=== PATIENT | female | born 1950 | race Caucasian/White ===

== ENCOUNTER 2017-02-12 16:45 | Emergency (ER) | payer MEDICARE, OTHER ==
[~2017-02-12] VITALS: Ht 156.2 cm; Wt 60.0 kg
--- NOTE | 2017-02-12 18:29 | REP ---
Right humerus: Two views. History: Trauma. Findings: AP and lateral views of the right humerus demonstrate normal bones, joints, and soft tissues. No fracture or subluxation is seen. Impression: Negative views of the right humerus. Signed by James Bullard MD 02/12/2017 07:49 P
[2017-02-12] MEDS ORDERED: PERCOCET 5MG/325MG TAB PO ONE ×2 (18:30→19:15)
--- NOTE | 2017-02-12 18:30 | REP ---
Right forearm series: Three views. History: Trauma. Findings: Three views of the right forearm demonstrate no evidence of fracture or subluxation. Bones, joints and soft tissues are unremarkable. Impression: No fracture seen. Signed by James Bullard MD 02/12/2017 07:49 P
--- NOTE | 2017-02-12 18:30 | REP ---
Left foot series: Four views. History: Trauma. Findings: Four views of the left foot show diffuse osteopenia. No fracture or subluxation is seen. Impression: Diffuse osteopenia. No fracture noted. Signed by James Bullard MD 02/12/2017 07:49 P
--- NOTE | 2017-02-12 18:31 | REP ---
Left ankle series: Four views. History: Trauma. Findings: Four views of the left ankle demonstrate an intact ankle mortise. Bones, joints, and soft tissues are unremarkable. Impression: Negative views of the left ankle. Signed by James Bullard MD 02/12/2017 07:49 P
[2017-02-12] MEDS ORDERED: PERC5TAB12 PO (19:08)
[2017-02-12 19:15] VITALS: BP 196/90
== END 2017-02-12 19:30 | disposition home or self-care (01) ==
LOC: M ED 16:45
DX: S93.402A Sprain of unspecified ligament of left ankle, initial encounter (principal); S63.601A Unspecified sprain of right thumb, initial encounter; S40.022A Contusion of left upper arm, initial encounter; W01.0XXA Fall on same level from slipping, tripping and stumbling without subsequent striking against object, initial encounter; Y92.512 Supermarket, store or market as the place of occurrence of the external cause; Y93.89 Activity, other specified; Y99.8 Other external cause status; J45.909 Unspecified asthma, uncomplicated; Z88.5 Allergy status to narcotic agent

== ENCOUNTER → 2017-05-04 | Outpatient (CLI) | payer MEDICARE, OTHER | LOC: M WHC 09:09 | DX: Z12.31 Encounter for screening mammogram for malignant neoplasm of breast (principal); Z78.0 Asymptomatic menopausal state; Z79.890 Hormone replacement therapy; N95.9 Unspecified menopausal and perimenopausal disorder | CPT/HCPCS: G0202 ==

== ENCOUNTER → 2018-06-28 | Outpatient (CLI) | payer MEDICARE, OTHER ==
[~2018-06-28] MED LIST: PERC5TAB12 PO
--- NOTE | 2018-06-28 11:30 | REPMRS ---
Patient History The patient states she had a clinical breast exam in 06/2018. Patient is postmenopausal. Family history of pancreatic cancer at age 38 in sister. Taking estrogen for 4 years. Took unspecified hormones for 2 years. Digital Woman Screen Mammo: June 28, 2018 - Exam #: [id number] Bilateral CC and MLO view(s) were taken. Technologist: Ashly Castillo, Technologist Prior study comparison: May 04, 2017, digital woman screen mammo performed at [facility]. February 14, 2016, digital woman screen mammo performed at [facility]. FINDINGS: There are scattered fibroglandular densities. There has been no change in the appearance of the mammogram from the prior studies. There is a mild amount of residual fibroglandular tissue which is fairly symmetric. There is no interval development of dominant mass, architectural distortion, or clustered microcalcification suggestive of malignancy. There are bilateral benign arterial calcifications noted. 3-D tomosynthesis shows no additional findings. The patient's Tyrer-Cuzick lifetime risk assessment score is 2.5 %. No significant changes when compared with prior studies. Assessment: BI-RADS/ACR category 2 mammogram. Benign Findings. Recommendation Routine screening mammogram in 1 year (for women over age 40). This mammogram was interpreted with the aid of an FDA-approved computer-aided dectection system. A. Negative x-ray reports should not delay biopsy if a dominant or clinically suspicious mass is present. B. Four to eight percent of cancers are not identified by mammography. C. Adenosis and dense breast may obscure an underlying neoplasm. Electronically Signed By: Tremanie Villareal MD 06/28/18 [id number]
== END ==
LOC: M WHC 09:09
PROVIDERS: ATTEND Nurse Practitioner Family
DX: Z01.419 Encounter for gynecological examination (general) (routine) without abnormal findings (principal); Z12.31 Encounter for screening mammogram for malignant neoplasm of breast; Z78.0 Asymptomatic menopausal state; R92.1 Mammographic calcification found on diagnostic imaging of breast; Z12.12 Encounter for screening for malignant neoplasm of rectum; Z92.23 Personal history of estrogen therapy; Z92.29 Personal history of other drug therapy; Z80.0 Family history of malignant neoplasm of digestive organs
CPT/HCPCS: 77063; 77067; 82270; G0101

== ENCOUNTER → 2019-04-24 | Outpatient (CLI) | payer MEDICARE, OTHER ==
--- NOTE | 2019-04-24 11:07 | REP ---
MRI right shoulder without contrast: History: Impingement syndrome. Rule out rotator cuff tear. Comparison radiographs of the right shoulder are from February 12, 2017. Technique: Axial, coronal and sagittal imaging planes are utilized. T1 and T2-weighted scans were obtained with and without fat saturation. MRI findings: The glenohumeral and acromioclavicular joints are normally aligned. There is moderate AC joint hypertrophy and some marrow edema is seen on either side of the acromioclavicular joint consistent with osteoarthritis. Subcortical cyst formation is seen in the distal clavicle. Cortical and medullary bone signal intensity are otherwise normal. There is a fairly large subacromial subdeltoid bursal effusion. There is mild inferolateral acromion process spurring. There is irregularity and some attenuation of the distal supraspinatus tendon consistent with partial tearing. Intra substance increased signal intensity is seen in a linear fashion in the distal supraspinatus tendon on oblique coronal T2-weighted scans. Subscapularis and infraspinatus tendons appear intact. Biceps tendon is unremarkable. Superior labrum appears intact. There is mild chondromalacia in the glenohumeral articulation. No anterior or posterior labral tear is seen. Impression: Partial thickness bursal surface tear supraspinatus tendon with slight attenuation associated with inferolateral acromion process spurring and bursal effusion. AC joint osteoarthritis. Minimal glenohumeral chondromalacia. Electronically Signed by James Bullard MD 04/24/2019 02:23 P
== END ==
LOC: M RAD 09:34
PROVIDERS: ATTEND Orthopaedic Surgery Hand Surgery
DX: M75.41 Impingement syndrome of right shoulder (principal); M19.011 Primary osteoarthritis, right shoulder

== ENCOUNTER → 2019-06-10 | Outpatient (CLI) | payer MEDICARE, OTHER ==
[~2019-06-10] MED LIST changes: +B-12100010 PO; +CALC500C16 PO; +VITA100054 PO; +VITA100T59 PO
--- NOTE | 2019-06-10 18:35 | ECGEPIP ---
[facility] Test Date: 2019-06-10 Pat Name: SHARI TEIXEIRA Department: Room: - Gender: Female [employer] Machine Operator: : [id number] Requested By: PATI Gomez Order Number: [id number] Reading MD: Jeffrey Hou Measurements Intervals [place] Rate: 57 P: 65 MT: 167 QRS: 77 QRSD: 105 T: 52 QT: 457 QTc: 447 Interpretive Statements SINUS BRADYCARDIA NO PRIOR Electronically Signed on 06-10-2019 18:34:46 EST by Jeffery Hou
== END ==
LOC: M EKG 09:42
PROVIDERS: ATTEND Anesthesiology
DX: Z01.818 Encounter for other preprocedural examination (principal); J45.909 Unspecified asthma, uncomplicated; R00.1 Bradycardia, unspecified

== ENCOUNTER 2019-06-19 05:47 | Day surgery (SDC) | payer MEDICARE, OTHER ==
[~2019-06-19] VITALS: Ht 156.2 cm; Wt 60.3 kg
[2019-06-19] MEDS ORDERED: LIDOCAINE 1% MDV 20ML VIAL ONE (05:48)
[2019-06-19] MEDS ORDERED: dexameTHASONE 10 MG/1 ML VIAL PRES.FREE (J1100) ONE (05:48)
[2019-06-19] MEDS ORDERED: ROPIvacaine 0.5% 30 ML INJECTION (J2795 PER 1MG) ONE (05:48)
[2019-06-19] MEDS ORDERED: LR 1,000 ML IV ONE (06:00)
[2019-06-19] MEDS ORDERED: ceFAZolin SOD 2 GM in IV 1 EA IV ONE (06:00)
[2019-06-19] MEDS ORDERED: VITAD1000T PO (06:32)
[2019-06-19] MEDS ORDERED: EPINEPHrine 1MG/ML INJ 30ML MD-VIAL As Ordered ONE (06:57)
[2019-06-19] MEDS ORDERED: MIDAZOLAM INJ 2 MG/2 ML VIAL (J2250) As Ordered ONE ×2 (07:01→08:10)
[2019-06-19] MEDS ORDERED: fentaNYL 100 MCG/2 ML INJECTION (J3010) As Ordered ONE (07:01)
[2019-06-19] MEDS ORDERED: SCOPOLAMINE 1MG TRANSDERMAL PATCH As Ordered ONE (07:03)
[2019-06-19] MEDS ORDERED: SCOPOLAMINE 1MG TRANSDERMAL PATCH TOP ONE (07:15)
[2019-06-19] MEDS ORDERED: fentaNYL 100 MCG/2 ML INJECTION (J3010) IV ONE (07:30)
[2019-06-19] MEDS ORDERED: MIDAZOLAM INJ 2 MG/2 ML VIAL (J2250) IV ONE (07:30)
[2019-06-19] MEDS ORDERED: dexameTHASONE 4 MG/ML 1ML VIAL (J1100) As Ordered ONE (08:10)
[2019-06-19] MEDS ORDERED: ONDANSETRON 4MG/2ML VIAL (J2405) As Ordered ONE (08:10)
[2019-06-19] MEDS ORDERED: LIDOCAINE 2% INJ 100 MG/5 ML SDV (FOR ANES.) As Ordered ONE (08:10)
[2019-06-19] MEDS ORDERED: ROCURONIUM BROMIDE 50 MG/5 ML VIAL As Ordered ONE (08:10)
[2019-06-19] MEDS ORDERED: SUGAMMADEX SODIUM 500 MG/5 ML VIAL (BRIDION) As Ordered ONE (08:10)
[2019-06-19] MEDS ORDERED: fentaNYL 250 MCG/5 ML INJECTION (J3010) As Ordered ONE (08:10)
[2019-06-19] MEDS ORDERED: propofoL 200 MG/20 ML VIAL As Ordered ONE (08:10)
[2019-06-19] MEDS ORDERED: METOCLOPRAMIDE INJ 10MG/2ML VIAL (J2765) As Ordered ONE (08:10)
[2019-06-19] MEDS ORDERED: DESFLURANE 240 ML INHALANT As Ordered ONE (08:12)
[2019-06-19] MEDS ORDERED: ACETAMINOPHEN 1000MG 100ML IV BTL (OFIRMEV) (J0131 PER 10MG) As Ordered ONE (08:13)
[2019-06-19] MEDS ORDERED: PHENYLephrine HCL 500 MCG/5 ML (100MCG/ML) SYRINGE (J2370) As Ordered ONE (08:20)
[2019-06-19] MEDS ORDERED: ePHEDrine SULFATE 25 MG/5 ML(5MG/ML) SYRINGE As Ordered ONE (08:29)
[2019-06-19] MEDS ORDERED: fentaNYL 100 MCG/2 ML INJECTION (J3010) IV PRN ×2 (10:15→12:30)
[2019-06-19] MEDS ORDERED: HYDROMORPHONE HCL 0.5 MG/ 0.5 ML SYRINGE (J1170 PER 1) IV PRN ×2 (10:15→12:30)
[2019-06-19] MEDS ORDERED: ONDANSETRON 4MG/2ML VIAL (J2405) IV PRN (10:15)
[2019-06-19] MEDS ORDERED: LR 1,000 ML IV SCH ×2 (10:15→12:30)
[2019-06-19] MEDS ORDERED: oxyCODONE 5MG TAB PO PRN ×4 (10:15→12:30)
[2019-06-19 12:07] VITALS: BP 155/74
[2019-06-19] MEDS ORDERED: ONDANSETRON 4 MG ORAL DISINTEGRATING TAB (Q0162 PER 1MG) As Ordered ONE (12:30)
[2019-06-19] MEDS ORDERED: ONDANSETRON 4 MG ORAL DISINTEGRATING TAB (Q0162 PER 1MG) PO PRN (12:45)
--- NOTE | 2019-06-20 16:23 | RO ---
DATE OF PROCEDURE: 06/19/2019 PREOPERATIVE DIAGNOSES: Right partial rotator cuff tear. Biceps tendinitis. Impingement. POSTOPERATIVE DIAGNOSES: Right partial rotator cuff tear. Biceps tendinitis. Impingement. PROCEDURE: Right arthroscopic rotator cuff repair, distal clavicle excision, subacromial decompression, acromioplasty, and arthroscopic biceps tenodesis. SURGEON: Avtar Stephenson MD CABLE MAINTAINER: JOLANTA Castelan, who was essential for flynn steps, for camera management, suture management. ANESTHESIA: General. PREOPERATIVE ANTIBIOTICS: 2 grams of Ancef. BLOOD LOSS: Minimal. COMPLICATIONS: None. INDICATIONS: This is a 68-year-old female who failed nonoperative modes of treatment. We discussed the risks and benefits including, but not limited to, infection, damage to underlying structures, incomplete relief. Patient wished to proceed. DESCRIPTION OF PROCEDURE: Patient was brought back to the operating room (OR) in the supine position, underwent general anesthesia, and was placed into the beach chair. Once secured, the right arm was prepped and draped in the usual fashion. We had a time-out confirming site, side, and surgery. Once all in agreement, we made a stab incision for the posterior portal. We established ourselves within the glenohumeral joint and established our anterior portal using a 7 x 7 Arthrex hard clamp cannula. We then inspected the joint. There was only grade 1-2 changes to both the glenoid and the humeral head. We did identify a significant superior labral anterior to posterior (SLAP) tear to the biceps and what appeared to be high-grade partial rotator cuff tear approximately 90% in the footprints. This was easily penetrated into the subacromial space. At this point, we tagged the biceps tendon with a #2 FiberWire. We then prepped the anchor space at the top of the bicipital groove with combination of burner , shaver and curettes. We then used a 4.75 SwiveLock and did an arthroscopic biceps tenodesis at the top of the groove, at which point we established ourselves in the subacromial space, used a shaver and coagulation to control bleeding and do a subacromial decompression, isolating and identifying a large anterior lateral acromial spur, and exposing the distal clavicle at the AC joint demonstrating significant impingement upon the rotator cuff; at which point we debrided and prepped the area lateral to the articular margin for the rotator cuff tear. We used a one medial row anchor with FiberTape loaded. We passed an anterior and posterior suture and secured it laterally with a 4.75 SwiveLock. We were able to compress the cuff nicely to the humeral footprint, at which point we then used a bur to do an acromioplasty to subchondral bone, removing the anterolateral spur and then doing a distal clavicle excision arthroscopically of approximately 1.1 cm of bone. Once this was adequately decompressed, we tried to clear the field of any bony debris. We were very happy with this procedure. Patient's portals were then closed with #3-0 nylon, surgical dressing of Adaptic, gauze, ABDs, placed into a sling. Patient was awakened and taken to postanesthesia care unit (PACU) in stable condition. POSTOPERATIVE PLAN: Patient will work on pain control, pendulum swings, and potentially some gentle wall crawls. I will also see her in 2 weeks for a repeat evaluation. MIRANDA
== END 2019-06-19 12:53 | disposition home or self-care (01) ==
LOC: M SDC 05:47
PROVIDERS: ATTEND Orthopaedic Surgery Hand Surgery
DX: M75.111 Incomplete rotator cuff tear or rupture of right shoulder, not specified as traumatic (principal); M75.21 Bicipital tendinitis, right shoulder; M25.811 Other specified joint disorders, right shoulder; J45.909 Unspecified asthma, uncomplicated; Z87.81 Personal history of (healed) traumatic fracture; Z88.5 Allergy status to narcotic agent; Z79.899 Other long term (current) drug therapy
CPT/HCPCS: 29824; 29826; 29827; 29828; C1713; J0131; J0690; J1100; J2250; J2370; J2405; J2765; J2795; J3010; Q0162

== ENCOUNTER → 2020-04-06 | Outpatient (CLI) | payer SELFPAY ==
[~2020-04-06] MED LIST changes: +D31000TA2 PO
== END ==
LOC: M LABSMTC 11:42
PROVIDERS: ATTEND Pediatrics
DX: Z20.828 Contact with and (suspected) exposure to other viral communicable diseases (principal)

== ENCOUNTER → 2020-04-07 | Outpatient (CLI) | payer MEDICARE, OTHER ==
--- NOTE | 2020-04-07 13:22 | REPMRS ---
Patient History The patient states she had a clinical breast exam in April 2020. Patient is postmenopausal. Family history of pancreatic cancer at age 38 in sister. Took estrogen for 4 years. Took unspecified hormones for 2 years. Digital Woman Screen Mammo: April 07, 2020 - Exam #: [id number] Bilateral CC and MLO view(s) were taken. Technologist: Colleen Ríos, Technologist Prior study comparison: June 28, 2018, bilateral digital woman screen mammo performed at [facility]. May 04, 2017, digital woman screen mammo performed at [facility]. February 14, 2016, digital woman screen mammo performed at [facility]. FINDINGS: There are scattered fibroglandular densities. The Volpara volumetric breast density category is:B. There has been no change in the appearance of the mammogram from the prior studies. There is a mild amount of scattered fibroglandular density which is fairly symmetric. There is no interval development of dominant mass, architectural distortion, or grouped microcalcification suggestive of malignancy. 3-D tomosynthesis shows no additional findings. Assessment: BI-RADS/ACR category 1 mammogram. Negative Mammogram. Recommendation Routine screening mammogram of both breasts in 1 year (for women over age 40). This patient's [facility] Lifetime Breast Cancer Risk is estimated at 2.2 %. This mammogram was interpreted with the aid of an FDA-approved computer-aided dectection system. Electronically Signed By: Rahat Bullard MD 04/07/20 [id number]
== END ==
LOC: M WHC 11:04
PROVIDERS: ATTEND Nurse Practitioner Family
DX: Z12.31 Encounter for screening mammogram for malignant neoplasm of breast (principal); Z78.0 Asymptomatic menopausal state; Z80.0 Family history of malignant neoplasm of digestive organs; Z92.23 Personal history of estrogen therapy; Z92.29 Personal history of other drug therapy

== ENCOUNTER → 2020-10-29 | Outpatient (CLI) | payer MEDICARE, OTHER ==
--- NOTE | 2020-10-29 15:43 | REP ---
INDICATION: RADICULOPATHY. COMPARISON: 05/09/2013 TECHNIQUE: Five views FINDINGS: Five views of the lumbosacral spine show no acute fracture, dislocation or subluxation. The intervertebral disc spaces are symmetric and well maintained. There is no spondylolysis or spondylolisthesis. The pedicles are intact bilaterally and there is no destructive osseous lesion. Minimal marginal osteophyte formation is seen on the left at the L2-3 and L3-4 levels. Mild degenerative facet joint changes are seen at the L5-S1 level and even more mild at L4-5. IMPRESSION: Minimal degenerative changes as described above which have developed since the last exam. <Electronically signed by Kalin Rose > 10/29/20 [id number]
== END ==
LOC: M WUC 14:55
PROVIDERS: ATTEND Nurse Practitioner Adult Health
DX: M51.16 Intervertebral disc disorders with radiculopathy, lumbar region (principal)

== ENCOUNTER → 2021-05-05 | Outpatient (REF) | LOC: M LABSMTC 10:52 | PROVIDERS: ATTEND Pediatrics | DX: Z11.52 Encounter for screening for COVID-19 (principal) ==

== ENCOUNTER → 2021-08-25 | Outpatient (CLI) | payer MEDICARE, OTHER ==
[~2021-08-25] MED LIST changes: -D31000TA2 PO; +VITA100093 PO
== END ==
LOC: M WHC 09:23
PROVIDERS: ATTEND Advanced Practice Midwife
DX: Z12.31 Encounter for screening mammogram for malignant neoplasm of breast (principal); Z80.0 Family history of malignant neoplasm of digestive organs

== ENCOUNTER → 2022-02-15 | Outpatient (CLI) | payer MEDICARE, OTHER | LOC: M ADAMS 08:24 | PROVIDERS: ATTEND Internal Medicine Pulmonary Disease | DX: R61 Generalized hyperhidrosis (principal) ==

== ENCOUNTER → 2023-02-14 | Outpatient (CLI) | payer MEDICARE, OTHER | LOC: M WHC 10:30 | PROVIDERS: ATTEND Advanced Practice Midwife | DX: Z12.31 Encounter for screening mammogram for malignant neoplasm of breast (principal); M81.0 Age-related osteoporosis without current pathological fracture; Z13.820 Encounter for screening for osteoporosis; N95.2 Postmenopausal atrophic vaginitis; Z90.710 Acquired absence of both cervix and uterus | CPT/HCPCS: 77063; 77067; 77080; G0463 ==

== ENCOUNTER → 2023-02-14 | Outpatient (CLI) | payer MEDICARE, OTHER | LOC: M WHC 09:23 | PROVIDERS: ATTEND Advanced Practice Midwife | DX: Z12.31 Encounter for screening mammogram for malignant neoplasm of breast (principal) ==

== ENCOUNTER → 2024-04-07 | Outpatient (CLI) | payer MEDICARE, OTHER | LOC: M PLAIMG 15:29 | PROVIDERS: ATTEND Internal Medicine Pulmonary Disease | DX: J45.20 Mild intermittent asthma, uncomplicated (principal) ==

== ENCOUNTER → 2024-12-19 | Outpatient (CLI) | payer MEDICARE, OTHER | LOC: M WHC 08:38 | PROVIDERS: ATTEND Advanced Practice Midwife | DX: M81.0 Age-related osteoporosis without current pathological fracture (principal); M85.851 Other specified disorders of bone density and structure, right thigh; M85.852 Other specified disorders of bone density and structure, left thigh ==

== ENCOUNTER → 2024-12-19 | Outpatient (CLI) | payer MEDICARE, OTHER ==
[2024-12-19 13:52] LABS: ALT/SGPT 28.0 U/L (7.0-40); AST/SGOT 29.0 U/L (<34); CALCIUM LEVEL 9.4 MG/DL (8.3-10.6); CARBON DIOXIDE LEVEL 30.0 MMOL/L (20-31); CHLORIDE LEVEL 105.0 MMOL/L (98-107); CREATININE FOR GFR 0.75 MG/DL (0.55-1.30); GLOMERULAR FILTRATION RATE 82.5 (>39); POTASSIUM SERUM 4.1 MMOL/L (3.5-5.1); SODIUM LEVEL 144.0 MMOL/L (136-145)
== END ==
LOC: M PLALAB 10:13
PROVIDERS: ATTEND Advanced Practice Midwife
DX: Z01.419 Encounter for gynecological examination (general) (routine) without abnormal findings (principal); M81.0 Age-related osteoporosis without current pathological fracture

== ENCOUNTER 2025-01-13 16:37 | Outpatient (CLI) | payer MEDICARE, OTHER ==
[~2025-01-13] VITALS: Ht 157.5 cm; Wt 63.0 kg
[~2025-01-13 16:37] MED LIST changes: +ZOLEDRONIC ACID 5 MG in IV 1 EA IV ONE
[2025-01-13 16:45] VITALS: BP 170/84; O2SAT 97
[2025-01-13] MEDS: ZOLEDRONIC ACID 5 MG in IV 1 EA IV ONE (16:50)
[2025-01-13 17:40] VITALS: BP 155/88; O2SAT 96
== END 2025-01-13 17:50 | disposition home or self-care (01) ==
LOC: M INFU 16:37
PROVIDERS: ATTEND Advanced Practice Midwife
DX: M81.8 Other osteoporosis without current pathological fracture (principal); Z88.5 Allergy status to narcotic agent
CPT/HCPCS: 96365; J3489